=== PATIENT | female | born 1950 | race Caucasian/White ===

== ENCOUNTER 2020-03-11 08:15 | Outpatient (CLI) | payer MEDICARE, SELFPAY ==
[2020-03-11 08:57] LABS: Hemoglobin A1C 6.3 % (<5.7)
[2020-03-11 08:58] LABS: Anion Gap 7 mmol/L (8-16); Blood Urea Nitrogen 16 mg/dL (7-17); Carbon Dioxide 27 mmol/L (22-30); Chloride 105 mmol/L (98-107); Cholesterol 119 mg/dL (0-200); Estimated Glomerular Filt Rate > 60; Glucose 112 mg/dL (65-105); HDL Direct 46 mg/dL; Sodium 139 mmol/L (137-145); Triglycerides 78 mg/dL (<150)
[2020-03-11 09:09] LABS: LDL Cholesterol Direct 53 mg/dL
[2020-03-11 09:26] LABS: Free T4 Free Thyroxine 0.95 ng/mL (0.78-2.19)
[2020-03-14 22:29] LABS: Vitamin D 1,25 (OH)2 Total 30 pg/mL (18-72); Vitamin D2 1,25 (OH)2 <8 pg/mL; Vitamin D3 1,25 (OH)2 30 pg/mL
== END 2020-03-11 08:16 | disposition home or self-care (01) ==
PROVIDERS: PCP Internal Medicine; Visit Provider Internal Medicine
DX: I10 Essential (primary) hypertension (principal); E03.9 Hypothyroidism, unspecified; E11.9 Type 2 diabetes mellitus without complications; E55.9 Vitamin D deficiency, unspecified; E78.2 Mixed hyperlipidemia
CPT/HCPCS: 36415; 80048; 80061; 82652; 83036; 84439; 84443

== ENCOUNTER 2020-06-13 09:58 | Outpatient (CLI) | payer MEDICARE, SELFPAY ==
[2020-06-13 10:35] LABS: Alanine Aminotransferase 32 U/L (4-35); Aspartate Amino Transferase 37 U/L (14-36)
== END 2020-06-13 09:59 | disposition home or self-care (01) ==
LOC: ANHLAB 10:02
PROVIDERS: PCP Internal Medicine; Visit Provider Podiatrist Foot & Ankle Surgery
DX: B35.1 Tinea unguium (principal)
CPT/HCPCS: 36415; 84450; 84460

== ENCOUNTER 2020-08-19 09:55 | Outpatient (CLI) | payer MEDICARE, SELFPAY ==
[2020-08-19 10:32] LABS: Basophils Percent Auto 0.5 % (0.2-1.2); Eosinophils Absolute Auto 0.2 K/mm3 (0-0.3); Hematocrit 45.3 % (37.0-47.0); Hemoglobin 14.4 g/dL (12.0-15.0); Immature Granulocyte Absolute 0.01 K/mm3 (0.00-0.031); Immature Granulocyte Percent A 0.2 % (0-0.5); Lymphocytes Absolute Auto 2.33 K/mm3 (0.9-3.2); Lymphocytes Percent Auto 35.1 % (18.3-44.2); Mean Corpuscular HGB Conc 31.8 g/dl (32-36); Mean Corpuscular Hemoglobin 29.4 pg (26-34); Mean Corpuscular Volume 92.4 fl (80-100); Monocytes Absolute Auto 0.6 K/mm3 (0.1-0.6); Monocytes Percent Auto 9.6 % (2.6-8.5); Neutrophils Absolute Auto 3.4 K/mm3 (1.3-6.7); Neutrophils Percent Auto 51.6 % (45.5-73.1); Platelet Count Result 293 k/mm3 (150-375); Red Cell Distribution Width 13.9 % (11.5-14.5); White Blood Count 6.6 K/mm3 (4.5-10.0)
[2020-08-19 10:46] LABS: Anion Gap 7 mmol/L (8-16); Blood Urea Nitrogen 16 mg/dL (7-17); Carbon Dioxide 30 mmol/L (22-30); Chloride 107 mmol/L (98-107); Cholesterol 129 mg/dL (0-200); Estimated Glomerular Filt Rate > 60; Glucose 110 mg/dL (65-105); HDL Direct 47 mg/dL; Potassium 4.2 mmol/L (3.4-5.0); Sodium 144 mmol/L (137-145); Triglycerides 89 mg/dL (<150)
[2020-08-19 10:57] LABS: LDL Cholesterol Direct 59 mg/dL
[2020-08-19 11:00] LABS: Add Urine Microscopic? YES; Appearance Urine Clear (Clear); Bacteria Urine Trace /hpf; Bilirubin Urine Negative (Negative); Blood Urine Negative (Negative); Color Urine Yellow (Yellow); Glucose Urine UA 3+ mg/dL (Negative); Ketones Urine Trace mg/dL (Negative); Leukocyte Esterase Ur Trace LEU/UL (NEGATIVE); Mucus Urine Rare /lpf; Nitrate Urine Negative (Negative); Protein Urine 1+ mg/dL (Negative); RBC Urine 0-2 /hpf (0-2); Specific Grav Ur 1.029 (1.001-1.035); Squamous Epithelial Cell Urine Moderate /hpf (Few); Urobilinogen Urine Negative mg/dL (<2.0); WBC Urine 21-30 /hpf (0-3)
[2020-08-19 11:37] LABS: Free T4 Free Thyroxine 1.28 ng/mL (0.78-2.19)
[2020-08-19 11:41] LABS: Thyroid Stimulating Hormone 0.373 uIU/mL (0.465-4.680)
[2020-08-19 11:47] LABS: Creatinine Urine 88.8 mg/dL
[2020-08-19 11:51] LABS: MALB Creatinine Ratio 36.8 mg/g (0-30); Microalbumin Urine Random 32.7 mg/L (0-16.7)
[2020-08-19 12:15] LABS: Hemoglobin A1C 6.5 % (<5.7)
== END 2020-08-19 09:56 | disposition home or self-care (01) ==
LOC: ANHLAB 09:57
PROVIDERS: PCP Internal Medicine; Visit Provider Internal Medicine
DX: I10 Essential (primary) hypertension (principal); Z79.899 Other long term (current) drug therapy; E11.9 Type 2 diabetes mellitus without complications; E03.9 Hypothyroidism, unspecified; E78.2 Mixed hyperlipidemia
CPT/HCPCS: 36415; 80048; 80061; 81001; 82043; 83036; 84439; 84443; 85025

== ENCOUNTER 2020-10-17 14:16 | Outpatient (CLI) | payer MEDICARE, SELFPAY ==
[2020-10-17 15:04] LABS: Alanine Aminotransferase 27 U/L (4-35); Aspartate Amino Transferase 35 U/L (14-36)
== END 2020-10-17 14:17 | disposition home or self-care (01) ==
PROVIDERS: PCP Internal Medicine; Visit Provider Podiatrist Foot & Ankle Surgery
DX: B35.1 Tinea unguium (principal)
CPT/HCPCS: 36415; 84450; 84460

== ENCOUNTER 2020-10-17 14:22 | Outpatient (CLI) | payer MEDICARE, SELFPAY ==
--- NOTE | ~2020-10-17 | XR_ITS ---
EXAMINATION: XR abdomen/kub 1V EXAM DATE: 10/17/2020 14:52 INDICATION: N20.0 - Calculus of kidney, nausea for 2 days. TECHNIQUE: Frontal projection of the upper abdomen, frontal projection lower abdomen/pelvis for inter pretation. Comparison is made to prior examination from 05/11/2005. FINDINGS: There is expected amount of colonic stool and gas. No small bowel dilation, nonobstructiv e bowel gas pattern. There are no suspicious calcifications identified. There is no organomegaly suspected. Large thoracolumbar bridging endplate osteophytes and overall moderate disc disease. Mild lumbar levocurvature, could be positional or mild scoliosis. Lung bases are unremarkable. IMPRESSION: No suspicious calcifications identified. Reviewed, dictated and finalized at location A.
== END 2020-10-17 14:23 | disposition home or self-care (01) ==
PROVIDERS: PCP Internal Medicine; Visit Provider Internal Medicine
DX: N20.0 Calculus of kidney (principal)
CPT/HCPCS: 36415; 74018; 84450; 84460

== ENCOUNTER 2020-10-21 09:48 | Outpatient (CLI) | payer MEDICARE, SELFPAY ==
--- NOTE | ~2020-10-21 | CT_ITS ---
EXAMINATION: CT abdomen pelvis wo con EXAM DATE: 10/21/2020 10:21 INDICATION: Kidney stone. TECHNIQUE: Spiral CT of the abdomen and pelvis was performed without contrast. Axial, coronal and sag ittal images were reviewed. The dose-length product (DLP) for this examination was 1065.01 mGy-cm. The exposure was tailored according to patient size (auto mA exposure control), and iterative reconst ruction (ASIR) was used as additional dose reduction technique. Comparison is made to prior examinati on from 2004. FINDINGS: There is no nephrolithiasis or hydronephrosis. The uterus is not identified and has likel y been surgically resected. The bladder is unremarkable. There is 10 mm cystic lesion in the pancreatic body, could be a pseudocyst given the punctate adjacen t calcification indicating history of pancreatitis. The differential diagnosis includes pseudocyst, i ntraductal papillary mucinous neoplasm (IPMN), mucinous cystic neoplasm (MCN), and the less common se marycruz cystadenoma and neuroendocrine tumor. Can't identify this on the prior study in 2004. One year f ollow-up CT or MR abdomen with contrast. The liver, spleen, adrenal glands are unremarkable. The gallbladder is distended but otherwise unrem arkable. There is no biliary duct dilation. There is no retroperitoneal or pelvic lymphadenopathy. There is moderate scattered arteriosclerotic disease. The appendix is normal. There is mild sigmoid colonic diverticulosis. There is no adjacent inflammat ory change to suggest diverticulitis. There is 2 x 3 cm duodenal diverticulum. There is expected wen unt of colonic stool. No free intraperitoneal gas. The heart is normal in size. There are no per icardial or pleural effusions. The lung bases are unremarkable. There are no osteoblastic or osteol ytic lesions identified. IMPRESSION: 1. No nephrolithiasis, hydronephrosis or acute intra-abdominal findings. 2. Incidental small cystic pancreatic lesion, could be pseudocyst but consider one-year follow-up MR or CT with contrast. 3. Sigmoid and duodenal diverticulosis. Reviewed, dictated and finalized at location A.
[2020-10-21 11:03] LABS: Add Urine Microscopic? YES; Appearance Urine Cloudy (Clear); Bilirubin Urine Negative (Negative); Blood Urine 2+ (Negative); Color Urine Yellow (Yellow); Glucose Urine UA 3+ mg/dL (Negative); Ketones Urine Negative (Negative); Leukocyte Esterase Ur Negative LEU/UL (NEGATIVE); Nitrate Urine Negative (Negative); Protein Urine 1+ mg/dL (Negative); Specific Grav Ur 1.025 (1.001-1.035); Urobilinogen Urine Negative mg/dL (<2.0)
== END 2020-10-21 09:49 | disposition home or self-care (01) ==
PROVIDERS: PCP Internal Medicine; Visit Provider Internal Medicine
DX: M54.5 Low back pain (principal); N20.0 Calculus of kidney; R30.0 Dysuria; K57.30 Diverticulosis of large intestine without perforation or abscess without bleeding; K57.10 Diverticulosis of small intestine without perforation or abscess without bleeding
CPT/HCPCS: 74176; 81001; 87077; 87086; 87088; 87186

== ENCOUNTER 2020-12-24 09:31 | Outpatient (CLI) | payer MEDICARE, SELFPAY ==
[2020-12-24 09:57] LABS: Alanine Aminotransferase 26 U/L (4-35); Albumin Level 4.2 g/dL (3.5-5.1); Alkaline Phosphatase 70 U/L (38-126); Anion Gap 8 mmol/L (8-16); Aspartate Amino Transferase 45 U/L (14-36); Bilirubin,Total 0.4 mg/dL (0.2-1.3); Blood Urea Nitrogen 19 mg/dL (7-17); Calcium 9.1 mg/dL (8.4-10.2); Carbon Dioxide 29 mmol/L (22-30); Chloride 105 mmol/L (98-107); Cholesterol 136 mg/dL (0-200); Estimated Glomerular Filt Rate > 60; Glucose 114 mg/dL (65-105); HDL Direct 51 mg/dL; Potassium 4.5 mmol/L (3.4-5.0); Sodium 142 mmol/L (137-145); Triglycerides 88 mg/dL (<150)
[2020-12-24 10:08] LABS: LDL Cholesterol Direct 61 mg/dL
[2020-12-24 11:05] LABS: Hemoglobin A1C 6.7 % (<5.7)
[2020-12-27 16:20] LABS: Vitamin D 1,25 (OH)2 Total 41 pg/mL (18-72); Vitamin D2 1,25 (OH)2 <8 pg/mL; Vitamin D3 1,25 (OH)2 41 pg/mL
== END 2020-12-24 09:32 | disposition home or self-care (01) ==
PROVIDERS: PCP Internal Medicine; Visit Provider Internal Medicine
DX: E11.9 Type 2 diabetes mellitus without complications (principal); E55.9 Vitamin D deficiency, unspecified; I10 Essential (primary) hypertension; E78.2 Mixed hyperlipidemia; E03.9 Hypothyroidism, unspecified
CPT/HCPCS: 36415; 80053; 80061; 82652; 83036; 84443

== ENCOUNTER 2021-03-24 08:10 | Outpatient (CLI) | payer MEDICARE, SELFPAY ==
--- NOTE | ~2021-03-24 | MM_ITS ---
EXAMINATION: MM screening [facility] BI w elizabeth HISTORY: Screening TECHNIQUE: Craniocaudal and mediolateral oblique 3-D tomosynthesis images were obtained and synthetic 2-D images were generated. CAD analysis was submitted and interpreted. COMPARISON: Comparison to multiple prior studies sequentially, with oldest reviewed study dated 05/12. BREAST PARENCHYMAL COMPOSITION: The breasts are almost entirely fatty. FINDINGS: There are benign bilateral breast calcifications. There is no evidence of suspicious mass, calcification, or architectural distortion to suggest malignancy in either breast. There has been no suspicious interval change. IMPRESSION: 1. No mammographic evidence of malignancy. 2. Recommend routine screening mammography in one year. BI-RADS Category 2: Benign finding(s). Reviewed, dictated and finalized at location A.
== END 2021-03-24 08:11 | disposition home or self-care (01) ==
LOC: ANHIMG 08:12
PROVIDERS: PCP Internal Medicine; Visit Provider Obstetrics & Gynecology
DX: Z12.31 Encounter for screening mammogram for malignant neoplasm of breast (principal)
CPT/HCPCS: 77063; 77067

== ENCOUNTER 2021-04-01 06:42 | Outpatient (CLI) | payer MEDICARE, SELFPAY ==
--- NOTE | ~2021-04-01 | MR_ITS ---
EXAMINATION: MR brain/brain stem wo/w con DATE: 04/01/2021 08:11 INDICATION: Right facial pain. Other disorders of facial nerve. TECHNIQUE: Magnetic resonance imaging (MRI) of the brain and brainstem was performed without and with 20 mL MultiHance intravenous contrast. Sequences included sagittal and axial T1-weighted FSE, axial diffusion-weighted FS EPI, axial T2*-weighted GRE, axial T2-weighted FLAIR Propeller, axial T2-weight ed Propeller, small tvoxa-zw-rigs coronal FIESTA, small qkqtn-hl-qtxb coronal T1-weighted FSE, and sm all kkhyh-nr-snzy axial T1-weighted SPGR. Postcontrast sequences included axial T1-weighted FSE, smal l jqnhd-wc-brlx coronal T1-weighted FSE, and small purxs-nv-dbsy axial T1-weighted SPGR. Apparent dif fusion coefficient (ADC) maps were created. COMPARISON: None. FINDINGS: There are scattered areas of nonspecific increased T2-weighted signal intensity in the cere bral white matter. There is no intracranial hemorrhage, acute infarction, or abnormal intracranial ma ss lesion. The ventricles are normal in size. The orbits are normal. The paranasal sinuses are clear. The internal auditory canals and inner and middle ears are normal. Right superior cerebellar artery exerts mass effect on cisternal segment of right trigeminal nerve, consistent with vascular loop comp ression. IMPRESSION: 1. 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 2. Mild nonspecific cerebral white matter disease, which likely represents chronic small vessel ische zulema disease. Reviewed, dictated and finalized at location A. IMPRESSION: 1. 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 2. Mild nonspecific cerebral white matter disease, which likely represents correspondence representative lisa small vessel ischemic disease.
[2021-04-01 07:17] LABS: Estimated Glomerular Filt Rate > 60
== END 2021-04-01 06:43 | disposition home or self-care (01) ==
LOC: ANHIMG 06:56
PROVIDERS: PCP Internal Medicine; Visit Provider Internal Medicine
DX: G51.8 Other disorders of facial nerve (principal); R93.0 Abnormal findings on diagnostic imaging of skull and head, not elsewhere classified
CPT/HCPCS: 70553; A9577

== ENCOUNTER 2021-09-18 10:14 | Outpatient (CLI) | payer MEDICARE, SELFPAY ==
[2021-09-18 10:48] LABS: Appearance Urine Clear (Clear); Color Urine Yellow (Yellow)
[2021-09-18 10:49] LABS: Add Urine Microscopic? YES; Bilirubin Urine Negative (Negative); Blood Urine Negative (Negative); Glucose Urine UA 3+ mg/dL (Negative); Ketones Urine Negative (Negative); Leukocyte Esterase Ur Negative LEU/UL (Negative); Mucus Urine Rare /lpf; Nitrate Urine Negative (Negative); Protein Urine Negative (Negative); RBC Urine 0-2 /hpf (0-2); Specific Grav Ur 1.028 (1.001-1.035); Squamous Epithelial Cell Urine Rare /hpf (Few); Urobilinogen Urine Negative mg/dL (<2.0); WBC Urine 0-3 /hpf
[2021-09-18 10:51] LABS: Hemoglobin A1C 6.3 % (<5.7)
[2021-09-18 10:59] LABS: Alanine Aminotransferase 29 U/L (4-35); Albumin Level 4.3 g/dL (3.5-5.1); Alkaline Phosphatase 69 U/L (38-126); Anion Gap 9 mmol/L (8-16); Aspartate Amino Transferase 39 U/L (14-36); Bilirubin,Total 0.6 mg/dL (0.2-1.3); Blood Urea Nitrogen 18 mg/dL (7-17); Calcium 9.1 mg/dL (8.4-10.2); Carbon Dioxide 27 mmol/L (22-30); Chloride 106 mmol/L (98-107); Cholesterol 133 mg/dL (0-200); Estimated Glomerular Filt Rate > 60; Glucose 116 mg/dL (65-110); HDL Direct 52 mg/dL; Potassium 4.4 mmol/L (3.4-5.0); Sodium 142 mmol/L (137-145); Triglycerides 79 mg/dL (<150)
[2021-09-18 11:10] LABS: LDL Cholesterol Direct 57 mg/dL
[2021-09-18 11:29] LABS: Thyroid Stimulating Hormone 0.715 uIU/mL (0.465-4.680)
[2021-09-18 11:38] LABS: Free T4 Free Thyroxine 1.21 ng/mL (0.78-2.19); Vitamin D 25 Hydroxy 31.7 ng/mL
== END 2021-09-18 10:15 | disposition home or self-care (01) ==
PROVIDERS: PCP Internal Medicine; Visit Provider Internal Medicine
DX: E11.9 Type 2 diabetes mellitus without complications (principal); E78.2 Mixed hyperlipidemia; E03.9 Hypothyroidism, unspecified; Z79.899 Other long term (current) drug therapy; I10 Essential (primary) hypertension; E55.9 Vitamin D deficiency, unspecified
CPT/HCPCS: 36415; 80053; 80061; 81001; 82306; 83036; 84439; 84443

== ENCOUNTER 2023-01-14 11:26 | Outpatient (CLI) | payer MEDICARE, SELFPAY ==
[2023-01-14 11:59] LABS: Add Urine Microscopic? NO; Appearance Urine Clear (Clear); Bilirubin Urine Negative (Negative); Blood Urine Negative (Negative); Color Urine Yellow (Yellow); Glucose Urine UA 3+ mg/dL (Negative); Ketones Urine Negative (Negative); Leukocyte Esterase Ur Negative LEU/UL (Negative); Nitrate Urine Negative (Negative); Protein Urine Negative (Negative); Specific Grav Ur 1.028 (1.001-1.035); pH Urine 5.5 (5.0-9.0)
== END 2023-01-14 11:27 | disposition home or self-care (01) ==
PROVIDERS: PCP Internal Medicine; Visit Provider Internal Medicine
DX: R30.0 Dysuria (principal)
CPT/HCPCS: 81003; 87086; 87088

== ENCOUNTER 2025-01-02 08:49 | Outpatient (CLI) | payer MEDICARE, SELFPAY ==
--- NOTE | 2025-01-27 19:28 | P.SLEEP_ITS ---
Sleep Study Date of Study: 01/02/25 Ordering Provider: Juan Peguero MD Interpreting Physician: Jemima Laird MD Sleep Study Type: Polysomnogram Height: 1.65 m Weight: 117.934 kg Body Mass Index: 43.2 Neck Circumference (inches): 17.5 [place]: 9 Reason for Sleep Study Hypersomnolence Sleep History Ginny Veloz is a 74-year-old woman with difficulties with excessive daytime sleepiness and excessive fatigue especially in the morning. She has difficulty falling asleep. She has a dry throat in the morning and she wakes herself up with snoring. She never awakens from sleep short of breath. She rarely wakes at night with heartburn, belching or coughing.??She occasional snores, however rarely snores loudly enough that others complain. She occasionally has trouble sleeping when she has a cold. She never wakes up gasping for breath during the night. She never has breathing problems at night observed by others. She rarely sweats excessively at night. She rarely notices her heart pounding or beating ir regularly during the night. She occasionally falls asleep during the day, never falls asleep while driving. She has felt drowsy while driving and has pulled over to avoid driving while drowsy. She never experiences loss of muscle tone with strong emotion. She never feels paralyzed on waking or falling asleep. She never experiences vivid dreams upon waking or falling asleep. She never feels afraid of going to sleep. She rarely has nightmares. She occasionally recalls her dreams. She rarely has thoughts racing through her mind. She never feels sad or depressed. She rarely feels anxiety. She rarely notices parts of her body jerk. She rarely kicks during the night. She occasionally feels crawling or aching feelings in her legs. She occasionally feels leg pain at night. She rarely has morning jaw pain, and occasionally grinds her teeth at night. She wears a mouth guard for this reason. She rarely feels bothered by pain during the day, is rarely awakened by pain during the night. She rarely wakes up feeling stiff in the morning, occasionally wakes feeling sore or achy in the morning. She occasionally awakens with pain in her neck, spine, or joints. She has daytime fatigue. Normal bedtime is between 11:00 p.m. and midnight, falling asleep within 1 -2 hours, waking 1 or 2 times during the night but is able to return to sleep qu ickly. She wakes between 9:00 a.m. and 10:00 a.m., reports getting between 8 and 10 hours of sleep per night. She keeps the same schedule on weekends. She occasionally takes a nap but does not feel refreshed after short 10-15 minute nap. She is usually drowsy for 1 hour or longer after waking. Habits:??Tobacco: Never smoker Caffeine: 1-2 servings daily Alcohol: 0-1 daily Recreational substances: none PMFSH Past Medical History Medical History Cataracts, bilateral Elevated coronary artery calcium score Hypersomnolence Encounter for routine adult health examination with abnormal findings CAD (coronary artery disease) Vision changes Allergic rhinitis Low frequency hearing loss Proteinuria Dysuria Melanoma of vulva Gastritis Melanoma History of uterine cancer Nausea and vomiting Onychomycosis Vitreous detachment of right eye Hearing loss Encounter for Medicare annual wellness exam Foot callus DJD (degenerative joint disease) Body mass index (BMI) 45.0-49.9, adult Adenocarcinoma Thyroid nodule Encounter for screening mammogram for malignant neoplasm of breast Colon cancer screening Overactive bladder Vitamin D deficiency Encounter for routine adult health examination without abnormal findings On shelter drug therapy Hypothyroidism (acquired) DM type 2 (diabetes mellitus, type 2) Hyperlipidemia Benign essential hypertension Uterine cancer history of uterine cancer treated 3 years ago Surgical History Surgical History Status post total right knee replacement Status post total left knee replacement History of total bilateral knee replacement (TKR) S/P abdominal hysterectomy Family History Family History Mother Hypertension Family history of hypothyroidism Family history of thyroid disease Grandparent Cerebrovascular accident Father Acute myocardial infarction Social History Social History Smoking status: Never smoker Second hand tobacco smoke exposure: No Alcohol intake: current Drinks per week: 1 Substance use: never Substance use type: does not use Lack of Transportation: No Lack of Food: Never True Current Housing: I Have Housing Concerned About Future Housing: No Difficulty Paying Gas/Electric Bills: No Difficulty Paying for Meds: No Currently Unemployed: No Education: Master's Degree or Higher Difficulty w/ Childcare or Family Care: No Living arrangements: with family Gender identity (if verbalized by the patient): Female Medications Home Medications ?Medication ?Instructions ?Recorded ?Confirmed ?Type albuterol sulfate 90 mcg/actuation 1 puff inhalation Q4H PRN 03/14/20 11/08/24 Rx aerosol inhaler (ProAir HFA) shortness of breath or wheezing #8 grams cholecalciferol (vitamin D3) 50 50 mcg PO DAILY #1 cap 12/31/20 11/08/24 Rx mcg (2,000 unit) capsule gabapentin 300 mg capsule 300 mg PO TID 09/24/21 11/08/24 History blood-glucose meter (Blood Glucose #1 ea 11/26/21 11/08/24 Rx Monitoring kit) lancets 28 gauge #100 ea 11/26/21 11/08/24 Rx blood sugar diagnostic (OneTouch #100 ea 11/27/21 11/08/24 Rx Verio test strips) mirabegron 50 mg tablet,extended See Rx Instructions .Route 07/06/23 11/08/24 Rx release 24 hr (Myrbetriq) .COMPLEX #90 tabs hydrocortisone-pramoxine 2.5 %-1 % 1 applic RECTAL QID PRN 12/15/23 11/08/24 Rx rectal cream hemorrhoids #30 grams dapagliflozin propanediol 10 mg See Rx Instructions .Route 07/04/24 11/08/24 Rx tablet (Farxiga) .COMPLEX #90 tabs celecoxib 200 mg capsule (Celebrex) 200 mg PO BID #180 caps 07/31/24 11/08/24 Rx metformin 500 mg tablet See Rx Instructions .Route 09/08/24 11/08/24 Rx .COMPLEX #90 tabs rosuvastatin 20 mg tablet See Rx Instructions .Route 09/08/24 11/08/24 Rx .COMPLEX #90 tabs irbesartan 75 mg tablet See Rx Instructions .Route 09/21/24 11/08/24 Rx .COMPLEX #90 tabs pantoprazole 40 mg tablet,delayed 40 mg PO QHS #90 tabs 10/30/24 11/08/24 Rx release (Protonix) ezetimibe 10 mg tablet 10 mg PO DAILY #90 tabs 11/08/24 11/08/24 Rx imiquimod 5 % topical cream packet 1 applic topical 3XW 11/08/24 11/08/24 History levothyroxine 88 mcg tablet See Rx Instructions .Route 12/03/24 Rx .COMPLEX #90 tabs amitriptyline 25 mg tablet 25 mg PO HS #90 tabs 12/13/24 Rx Sleep Procedure A full night polysomnogram using the Sosh multi-channel system recorded the standard physiologic parameters including EEG, EOG, submentalis EMG, anterior tibialis EMG, EKG, body position, nasal and oral airflow using nasal pressure sensor and thermistor. Respiratory parameters of chest and abdominal movements were recorded with Respiratory Inductance Plethysmography belts. Oxygen saturation was recorded by pulse oximetry. Video monitoring was also performed. Sleep stages, periodic limb movements, and EEG arousals were scored in 30 second epochs according to the criteria of the AASM Scoring Manual. The Apnea-Hypopnea Index was calculated using CMS guidelines for definition of hypopnea with 4% O2 desaturations while scoring respiratory events. Sleep Architecture The total recording time was 450.7 minutes. The total sleep time was 371.0 minutes. Sleep latency was 40.6 minutes. REM latency was 83.5 minutes. Sleep efficiency was 82.3%. The patient had 24 awakenings for an awakening index of 3.9. Wake after sleep onset time was 39.0 minutes. The patient spent 15.5 minutes, 4.2% of total sleep time in Stage N1. The patient spent 160.5 minutes, 43.3% in Stage N2. The patient spent 136.0 minutes, 36.7% in Stage N3. The patient spent 59.0 minutes, 15.9% in Stage REM sleep. Respiratory Analysis The patient had 48 hypopneas, 32 obstructive apneas, 1 mixed apnea, and no central apneas for an overall Apnea Hypopnea Index of 13.1. The REM Apnea Hypopnea Index was 66.1. The NREM Apnea Hypopnea Index was 3.5. The patient had a Central Apnea Hypopnea Index of 0. There were no Respiratory Effort Related Arousals. The Respiratory Disturbance Index is 13.6 events per hour. There was no evidence of Ilya-Sanchez Respirations. The supine apnea-hypopnea index is 15.3, the nonsupine apnea-hypopnea index is 10.9. Arousals There were 80 total arousals for an arousal index of 12.9. There were 67 spontaneous arousals for an index of 10.8. There were 11 arousals due to respiratory events for an index of 1.8. There were no arousals due to periodic limb movements. There were 2 arousals due to isolated limb movements for an index of 0.3. Periodic Limb Movements The patient had 5 isolated limb movements with an index of 0.8. The patient had no periodic limb movements. Patient had a total of 5 limb movements with a total limb movement index of 0.8. Oximetry Data The patient had an average oxygen saturation of 92.1% in sleep with a minimum oxygen saturation of 72% and a maximum oxygen saturation of 99%. The patient had 82 oxygen desaturations that were 4% or greater resulting in an Oxygen Desaturation Index of 13.3. The patient spent 31.4 minutes, 7% of total sleep time with an oxygen saturation below 88%. Snoring Profile Snoring was mild and intermittent. Cardiac Profile The EKG showed normal sinus rhythm, average pulse rate of 75.7 bpm with a minimum pulse of rate of 65 bpm and a maximum pulse rate of 90 bpm. No arrhythmias noted. EEG Profile Unremarkable, no evidence of seizures. Assessment and Plan Assessment and Plan (1) Obstructive sleep apnea: Code(s): G47.33 - Obstructive sleep apnea (adult) (pediatric) Status: Acute Assessment and Plan: This basic nocturnal polysomnogram on 01/02/2025 shows mild obstructive sleep apnea, the apnea-hypopnea index using 4% criteria is 13.1 with desaturation to 72%, 31.4 minutes or 7% of the night spent below 88% and mild intermittent snoring. She did not meet criteria early enough in the night to start a titration so this was conducted as a full night basic nocturnal polysomnogram. She did not have central apneas therefore she is a candidate for auto PAP. She has hypertension, and with this medical comorbidity, she may proceed with treatment for mild obstructive sleep apnea. Options incllude APAP. I recommend that this patient be prescribed Resmed AirSense 11 AutoPAP 5-15 cm H2O, CPAP mask/filters/tubing and humidifier chamber. This should be used with all episodes of sleep. Compliance should be reviewed within 31-90 days of starting therapy for usage greater than 4 hours per night greater than 70% of the nights. The patient should be asked about symptoms such as excessive daytime sleepiness, quality of sleep, decreased nocturia, increased mental functioning such as memory, mood, and concentration. If she does not tolerate auto PAP, consider in-lab titration with a sleep aid available if needed to initiate and maintain sleep. She had a long sleep latency at the start of the study. BMI is43.3. Weight management is advised. Clinical data suggests that weight loss of 10% can reduce the severity of respiratory events and snoring and improve AHI by as much as 25%. Data The data obtained during this sleep study is adequate for interpretation. Certification This sleep study has been reviewed by a board certified sleep medicine physician.
[2025-01-27 19:36] VITALS: BMI 43.2
== END 2025-01-03 06:27 | disposition home or self-care (01) ==
LOC: ANHCSM 08:51
PROVIDERS: PCP Internal Medicine; Visit Provider Internal Medicine
DX: G47.33 Obstructive sleep apnea (adult) (pediatric) (principal); G47.10 Hypersomnia, unspecified
CPT/HCPCS: 95810